=== PATIENT | male | born 1975 | race Asian ===

== ENCOUNTER 2020-02-28 15:56 | Emergency (ER) | payer MEDICAID ==
[~2020-02-28] VITALS: Ht 160 cm; Wt 50.0 kg
[2020-02-28 16:11] VITALS: BP 150/97
== END 2020-02-28 17:58 | disposition home or self-care (01) ==
LOC: ER 15:57
DX: S61.210A Laceration without foreign body of right index finger without damage to nail, initial encounter (principal); S69.81XA Other specified injuries of right wrist, hand and finger(s), initial encounter; X58.XXXA Exposure to other specified factors, initial encounter; Y93.89 Activity, other specified; Y92.89 Other specified places as the place of occurrence of the external cause; Y99.8 Other external cause status
CPT/HCPCS: 73140; 99283